=== PATIENT | male | born 1955 | race Caucasian/White ===

== ENCOUNTER 2023-09-12 11:49 | Day surgery (SDC) | payer MEDICARE, OTHER ==
[2023-08-28 12:11] LABS: PRE OP HEMATOCRIT 44.4 % (42.0-52.0)
[2023-08-28 12:13] LABS: BASOPHILS # (AUTO) 0.1 X10'3 (0-0.2); BASOPHILS % (AUTO) 0.9 % (0-1); EOSINOPHILS # (AUTO) 0.1 X10'3 (0-0.9); EOSINOPHILS % (AUTO) 1.4 % (0-6); LYMPHOCYTES # (AUTO) 1.4 X10'3 (1.1-4.8); LYMPHOCYTES % (AUTO) 24.9 % (21-51); MEAN CORPUSCULAR HGB CONC 34.7 g/dL (33.0-36.5); MEAN PLATELET VOLUME 8.3 FL (7.4-10.4); MONOCYTES # (AUTO) 0.6 X10'3 (0-0.9); NEUTROPHILS # (AUTO) 3.5 X10'3 (1.8-7.7); NEUTROPHILS % (AUTO) 62.8 % (42-75); PRE OP HEMOGLOBIN 15.4 g/dL (14.0-17.9); PRE OP PLATELET COUNT 184 X10'3 (140-440); PRE OP WHITE BLOOD COUNT 5.6 10'3 (4.8-10.8); RED BLOOD COUNT 4.68 X10'6 (4.70-6.10)
[2023-08-28 12:25] LABS: ALBUMIN/GLOBULIN RATIO 1.2 (1.1-1.5); ALKALINE PHOSPHATASE 69 IU/L (46-116); BLOOD UREA NITROGEN 7 MG/DL (7-18); BUN/CREATININE RATIO 8.9 (10.0-20.0); CALCIUM 8.8 MG/DL (8.5-10.1); CHLORIDE 103 MMOL/L (99-107); CREATININE 0.79 MG/DL (0.60-1.10); PRE OP ALT 51 U/L (30-65); PRE OP ANION GAP 11 (8-16); PRE OP AST 25 U/L (10-37); PRE OP BILIRUB, TOTAL 0.7 MG/DL (0.0-1.0); PRE OP GLUCOSE 119 MG/DL (70-104); PRE OP POTASSIUM 4.1 MMOL/L (3.4-5.1); PRE OP SODIUM 141 MMOL/L (135-145); TOTAL CARBON DIOXIDE 27.3 MMOL/L (24-32); TOTAL PROTEIN 7.4 G/DL (6.4-8.2); eGFR > 90 ML/MIN
[2023-09-03 05:40] VITALS: BP 151/94; PULSE 97; RESP 16; TEMP 98.7; O2SAT 98
[2023-09-03] MEDS: famotidine 20mg tablet PO ONE (06:20)
[2023-09-03] MEDS: cefazolin 2gm/D5W 100mL 100 ML IV ONE (06:22)
[2023-09-03] MEDS: tamsulosin 0.4mg capsule PO ONE (06:22)
[2023-09-03] MEDS: ringers solution, lacted 1,000 ML IV SCH (06:22)
[~2023-09-12] VITALS: Ht 152.4 cm; Wt 82.7 kg
[2023-09-12] VITALS (17 sets, daily range): BP systolic 109–161; BP diastolic 74–98; PULSE 92–111; RESP 7–18; TEMP 98.6; O2SAT 86–97
[2023-09-12] MEDS: cefazolin 2gm/D5W 100mL 100 ML IV ONE (05:30)
[~2023-09-12 11:49] MED LIST: AMLO1CAP5 PO; ATOR10TA87 PO; BUPIVAcaine/PF 2.5mg/ml (0.25%) 10ml vial ONE; LIDOcaine 1% 30ml preserv. free vial ONE; TADA5TAB2 PO; ringers solution, lacted 1,000 ML IV SCH
[2023-09-12] MEDS ORDERED: labetalol 20mg/4ml (5mg/ml) syringe IV PRN (12:20)
[2023-09-12] MEDS ORDERED: ondansetron/PF 4mg/2ml inj IV PRN (12:20)
[2023-09-12] MEDS ORDERED: fentaNYL/PF 50MCG/1 ML 2ML syringe IV PRN ×2 (12:20)
[2023-09-12] MEDS ORDERED: hydrALAZINE 20mg/ml inj. IV PRN (12:20)
[2023-09-12] MEDS ORDERED: morphine 2 MG/ML inj. syringe IV PRN (12:20)
[2023-09-12] MEDS ORDERED: morphine 4 MG/ML inj SYRINge IV PRN (12:20)
[2023-09-12] MEDS: famotidine 20mg tablet PO ONE (12:23)
[2023-09-12] MEDS: tamsulosin 0.4mg capsule PO ONE (12:24)
[2023-09-12] MEDS: ringers solution, lacted 1,000 ML IV SCH (12:25)
[2023-09-12] MEDS ORDERED: LIDOcaine 1% 30ml preserv. free vial ONE (13:12)
[2023-09-12] MEDS ORDERED: BUPIVAcaine 2.5mg/ml inj 50ml vial (contains preservative) ONE (13:12)
[2023-09-12] MEDS ORDERED: dexamethasone sod phosphate 10mg/ml inj ONE (13:20)
[2023-09-12] MEDS ORDERED: glycopyrrolate 0.2mg/ml inj ONE (13:20)
[2023-09-12] MEDS ORDERED: desflurane 240ml liquid inh. IH ONE (13:20)
[2023-09-12] MEDS ORDERED: neostigmine methylsulfate 1 MG/ML 10ml vial ONE (13:20)
[2023-09-12] MEDS ORDERED: fentaNYL/PF 50MCG/1 ML 2ML syringe ONE (13:30)
[2023-09-12] MEDS ORDERED: midazolam 1 mg/ML 2ml injection ONE (13:30)
[2023-09-12] MEDS ORDERED: LIDOcaine 1%/PF 5ML 10 MG/ML VIAL ONE (13:36)
[2023-09-12] MEDS ORDERED: propofol inj 20 ML IV ONE (13:36)
[2023-09-12] MEDS ORDERED: rocuronium 10mg/ml inj IV ONE (13:37)
[2023-09-12] MEDS ORDERED: ondansetron/PF 4mg/2ml inj ONE (13:38)
[2023-09-12] MEDS ORDERED: acetaminophen 1,000mg/100ml IV 100 ML IV ONE (13:41)
[2023-09-12] MEDS: LIDOcaine 1% 30ml preserv. free vial IJ ONE (13:56)
[2023-09-12] MEDS: BUPIVAcaine/PF 2.5 mg/ml (0.25%) 30ml vial IJ ONE (13:57)
[2023-09-12] MEDS: HYDROcodone/acetaminophen 5mg/325mg tablet PO PRN (17:05)
== END 2023-09-12 17:28 | disposition home or self-care (01) ==
LOC: PAS 11:49
PROVIDERS: ATTEND Surgery
DX: K43.0 Incisional hernia with obstruction, without gangrene (principal); K40.90 Unilateral inguinal hernia, without obstruction or gangrene, not specified as recurrent; I10 Essential (primary) hypertension; E78.5 Hyperlipidemia, unspecified; I20.9 Angina pectoris, unspecified; Z87.891 Personal history of nicotine dependence; Z85.828 Personal history of other malignant neoplasm of skin; Z79.899 Other long term (current) drug therapy; Z98.890 Other specified postprocedural states; Z88.8 Allergy status to other drugs, medicaments and biological substances; Z82.49 Family history of ischemic heart disease and other diseases of the circulatory system
CPT/HCPCS: 36415; 49616; 49650; 80053; 82948; 85025; 93005; C1781; J0131; J0690; J1100; J2250; J2405; J2704; J2710; J3010; J3490; J7030; J7120; S2900; Z7506; Z7508; Z7512; A4215; A4618